=== PATIENT | female | born 1965 | race Caucasian/White ===

== ENCOUNTER 2025-01-26 12:34 | Emergency (ER) | payer OTHER, SELFPAY ==
[2025-01-26] VITALS (14 sets, daily range): BP systolic 100–160; BP diastolic 63–110; PULSE 81–103; RESP 12–22; TEMP 36.7–36.9; O2SAT 94–99; BMI 19.0
--- NOTE | 2025-01-26 13:18 | ED.SKABFB ---
HPI - Skin/Abscess/Foreign Bdy General Chief complaint: Skin/Abscess/Foreign Body Stated complaint: abscess, poss fungal infection Time Seen by Provider: 01/26/25 12:45 Source: patient Mode of arrival: ambulatory Limitations: other (Patient was paranoid and difficult to get a history from) History of Present Illness ED Provider: Dr. Mahin Bai HPI narrative: 59-year-old female with a history of schizoaffective disorder admitted to [facility] on 01/23/2025 for decompensation of her schizoaffective disorder. In reviewing the notes sent him with the patient, the patient has been experiencing with aggressive behavior, audible hallucinations with command hallucinations directing her to harm herself and delusions that evil spirits are accompanying her on errands. The patient's was noted to have a medical concern including infected wound on her scalp and a wound on her left gluteal area but was not examined on initial presentation to [facility]. According to EMS, the patient was having increased pain from the abscess on the top of her head in her left buttocks area therefore she was sent to the emergency department for evaluation. There was no reported fever or chills by the [facility] staff. Patient is on a conditional voluntary admission at [facility] and does not have a guardian. Related Data Previous Rx's ?Medication ?Instructions ?Recorded cephalexin 500 mg capsule 500 mg PO QID 7 days #28 caps 01/26/25 doxycycline hyclate 100 mg tablet 100 mg PO Q12H 7 days #14 tabs 01/26/25 Allergies Allergy/AdvReac Type Severity Reaction Status Date / Time haloperidol [From Haldol] Allergy Severe Anaphylaxis Verified 01/26/25 12:53 Review of Systems Review of Systems: Yes all other systems are reviewed and are negative [facility] Social History Social History Smoked in Last 30 Days: No Use of substances other than those prescribed or required for medical reasons: No Advance Directives: No Advance Directives Information Provided: Yes Do you have a plan to hurt others: No Plan Physical Exam Vital Signs: Vital Signs: Last Vital Signs Temp 98.0 F 01/26/25 21:04 Pulse 87 01/26/25 21:04 Resp 14 01/26/25 21:04 BP 104/65 01/26/25 21:04 Pulse Ox 94 01/26/25 21:04 O2 Del Method Room Air 01/26/25 21:04 O2 Flow Rate 3 01/26/25 15:33 Oxygen Flow Rate 3 01/26/25 15:16 BMI result Body Mass Index 19.0 Vital signs were normal Exam: General: Awake, alert in no distress, patient was oriented to person, place she knows that she came from [facility], she does have some paranoid thoughts Head: Normocephalic, patient has a 10 mm lesion to her mid parietal scalp which does appear to be draining purulent material, there is surrounding erythema, she does have tenderness to palpation of this lesion. EENT: PERRL, Lids normal, sclera normal, conjunctiva normal, nose normal , ears normal, throat without erythema or exudates Neck: Supple, no adenopathy Lung: breath sounds symmetric, no wheezing, rales or rhonchi Chest: symmetric movement, nontender Heart: regular rate and rhythm, normal S1, S2 no murmurs or rubs Abdomen: soft, non-tender, nondistended, normal bowel sounds Back: no vertebral tenderness, no CVAT Buttocks: Patient has a 10 x 5 area of erythema to her left buttocks with central flocculence and peripheral induration. Extremities: no deformities, moves all extremities symmetrically Neuro: Awake, alert, oriented, normal speech, cranial nerves intact, moves all extremities symmetrically Psych: Patient does have paranoid ideation, she was pleasant and cooperative Medications Administered Discontinued Medications Generic Name Dose Route Start Last Admin Trade Name Freq PRN Reason Stop Dose Admin Cephalexin HCl 500 mg 01/26/25 18:09 01/26/25 18:55 Cephalexin 500 Mg Capsule PO 01/26/25 18:10 500 mg ONCE ONE Administration Doxycycline Monohydrate 100 mg 01/26/25 18:09 01/26/25 18:55 Doxycycline Monohydrate 100 Mg Capsule PO 01/26/25 18:10 100 mg ONCE ONE Administration Ketamine HCl 200 mg 01/26/25 15:15 01/26/25 15:15 Ketamine Hcl 500 Mg/5 Ml Vial IVPUSH 01/26/25 15:16 200 mg ONCE ONE Administration Lidocaine HCl 5 ml 01/26/25 13:18 01/26/25 15:54 Lidocaine Hcl 1 % Mpf 5 Ml Vial INFILTRATI 01/26/25 13:19 Not Given ONCE STA Lidocaine HCl 5 ml 01/26/25 13:18 01/26/25 15:54 Lidocaine Hcl 1 % Mpf 5 Ml Vial INFILTRATI 01/26/25 13:19 Not Given ONCE ONE Lidocaine HCl 5 ml 01/26/25 13:18 01/26/25 13:28 Lidocaine Hcl 1 % Mpf 5 Ml Vial INFILTRATI 01/26/25 13:19 5 ml ONCE ONE Administration Lidocaine HCl 5 ml 01/26/25 13:18 01/26/25 13:28 Lidocaine Hcl 1 % Mpf 5 Ml Vial INFILTRATI 01/26/25 13:19 5 ml ONCE ONE Administration Lorazepam 1 mg 01/26/25 13:38 01/26/25 13:48 Lorazepam 2 Mg/Ml Vial IVPUSH 01/26/25 13:39 1 mg STAT STA Administration Medical Decision Making Medical Decision Making MDM Narrative: 59-year-old female with a history of schizoaffective disorder admitted to [facility] on 01/23/2025 for decompensation of her schizoaffective disorder and transferred to the emergency department for evaluation of an abscess on the top of her head and abscess to her left buttocks that has been there since admission to [facility] but apparently pain was getting worse. Patient was on a conditional voluntary admission at [facility] and does not have a guardian. Vital signs were normal. Exam did reveal an abscess to the top of her head which is draining purulent material in an area of flocculence and induration to her left buttocks which also has surrounding erythema. Differential diagnosis: ?Includes but is not limited to abscess, cellulitis Course: 14:01 Given the significant tenderness that the patient over these abscesses and her schizoaffective disorder with paranoid ideation I do not think that I can drain these abscesses with local anesthetic and that the patient requires procedural sedation with ketamine. Despite the patient's schizoaffective disorder and paranoid ideation,she does not have a guardian and she was able to sign a conditional voluntary consent form for treatment at [facility]. Therefore, I believe that the patient is able to comprehend the risks and benefits of procedural sedation with ketamine and is able to sign consent for the procedure. The patient tolerated the procedure well sedation a and incision and drainage procedures well. Both the abscesses were successfully incised, drained and packed with gauze packing. Patient was started on Keflex 500 mg 4 times a day for 7 days and doxycycline 100 mg 2 times a day for 7 days. She was given her 1st dose of these medications orally here in the emergency department.Bulky dressings were applied over the abscesses and the patient was discharged back to [facility]. Admission/Observation Consideration of admission/observation: Escalation of care including admission/observation considered ( no) External Record Review External record reviewed: Outpatient record ( provided by Octavia Moore of [facility]) Chronic Conditions Patient?s care impacted by: Other ( schizoaffective disorder) Procedures Procedure Narrative Procedure Narrative: Incision and drainage abscesses with procedural sedation: The patient gave md informed written consent for procedural sedation and incision and drainage procedures. The patient was placed on a cardiac, O2 saturation , respiratory rate monitor and end-tidal CO2 monitoring. A respiratory therapist was present to monitor the patient's respiratory status. A dedicated nurse was present to monitor the patient's vital signs and the patient. The patient was given given ketamine IV during the course of the procedure. She received a total of 200 mg IV. Patient had sufficient anesthesia and analgesia with this medication throughout the entire procedure.The patient tolerated the procedure well and there were no complications from the procedural sedation. Patient was observed by the nurse until she was back to her baseline mental status. Left Buttocks Abscess I&D Procedure The abscess on the patient's left buttocks was prepped with Betadine and then anesthetized with 1% lidocaine x5 cc. Using a #11 scalpel, an incision was made over the flocculent area and approximately 20 cc of purulent material was expressed from the abscess cavity. Adhesions within the abscess cavity were broken down using hemostats. Gauze packing was placed in the abscess cavity and a bulky dressing was applied by nursing staff. Scalp Abscess I&D Procedure The area around the abscess of the patient's scalp was trimmed away with scissors to further expose the abscess. The abscess was then prepped with Betadine and anesthetized with 1% lidocaine. Using a #11 scalpel, an incision was made over the flocculent area and approximately 10 cc of purulent material was expressed from the abscess cavity. Adhesions within the abscess cavity were broken down using hemostats. Gauze packing was placed in the abscess cavity and a ABS pad dressing was applied by nursing staff and held in place using OB underwear. Discharge Plan Discharge Clinical Impression: Abscess of scalp, Abscess of buttock, left, Encounter for incision and drainage procedure Patient Disposition: Xfer Psychiatric Hosp Transfer Details: [facility] Instructions: Abscess Incision and Drainage (DC) Additional Instructions: You were given procedural sedation with ketamine 200 mg IV. We are able to successfully incise and drain the abscess on your head and on your buttocks. We did drain a significant amount of pus. We did place a gauze packing in your head and in your buttocks abscess. This packing needs to stay in for 4 days and then can be removed. If they are not able to remove it at [facility] they can send you back to the emergency department and we can remove the packing. If the packing falls out before 4 days, it does not need to be reinserted. Take doxycycline 100 mg pills, 1 pill every 12 hours for 7 days. Take Keflex 500 mg pills, 1 pill 4 times a day for 7 days. Take ibuprofen 200 mg pills, 2 pills every 6 hours as needed for pain or fever. Take Tylenol (acetaminophen) 500 mg pills, 2 pills every 6 hours as needed for pain or fever. Follow-up with your doctor in 2 days. Please return to the emergency department if your symptoms get worse or if you develop any symptoms that are concerning to you. Prescriptions: New cephalexin 500 mg capsule 500 mg PO QID 7 Days Qty: 28 0RF doxycycline hyclate 100 mg tablet 100 mg PO Q12H 7 Days Qty: 14 0RF Interventions: Acute Care Transfer Worksheet (ED) Last Done: 01/26/25 21:04 Discharge Date/Time: 01/26/25 21:06 Print Language: Amharic
[2025-01-26] MEDS: Lidocaine HCl 1 % MPF 5 ML VIAL INFILTRATI ×2 (13:28)
[2025-01-26] MEDS: LORazepam 2 MG/ML VIAL 1 MG IVPUSH (13:48)
[2025-01-26] MEDS: Ketamine HCl 500 MG/5 ML VIAL 200 MG IVPUSH (15:15)
[2025-01-26] MEDS: cephALEXin 500 MG CAPSULE PO (18:55)
[2025-01-26] MEDS: Doxycycline Monohydrate 100 MG CAPSULE PO (18:55)
--- NOTE | 2025-01-26 18:57 | PC.NURSE ---
pt medicated per mar, tolerated whole well with water.
--- NOTE | 2025-01-26 21:03 | MHC.EDTECH ---
pt ambulated with a steady gait in hospital hallway. RN aware
--- NOTE | 2025-01-26 21:05 | PC.NURSE ---
peripheral iv removed, verbal report given to ems, pt aa&ox4, ambulatory indepenedently w/ steady gait/balance, pt to return to [facility] via ambulance service
== END 2025-01-26 21:06 ==
PROVIDERS: Emergency Provider Emergency Medicine Emergency Medical Services
DX: L02.811 Cutaneous abscess of head [any part, except face] (principal); L02.31 Cutaneous abscess of buttock; R51.9 Headache, unspecified; F25.9 Schizoaffective disorder, unspecified; R45.6 Violent behavior
CPT/HCPCS: 10061; 87070; 87077; 87186; 87205; 96374; 96375; 99285; J2003; J2060

== ENCOUNTER 2025-01-31 08:13 | Emergency (ER) | payer OTHER, SELFPAY ==
[2025-01-31 08:16] VITALS: BP 108/80; PULSE 78; O2SAT 97
[2025-01-31 08:26] VITALS: BP 98/53; PULSE 74; RESP 15; TEMP 36.3; O2SAT 99
--- NOTE | 2025-01-31 09:01 | ED_ITS ---
HPI - General Adult General Chief complaint: Skin/Abscess/Foreign Body Stated complaint: WOUND PACKING F/U FROM [facility] PER EMS Time Seen by Provider: 01/31/25 09:00 Source: patient and EMS Mode of arrival: EMS Limitations: no limitations History of Present Illness ED Provider: Kiesha Coulter PA-C HPI narrative: Patient is a 59 year old assigned female at with a history of schizo affective disorder (currently hospitalized at [facility]), presenting to the emergency department today for wound checks. Patient states that she was here on 01/25/2025 and had a scalp and left buttock abscess incised and drained with packing remaining. Patient states that she was told to come back to have packing removed. Patient denies any dizziness, lightheadedness, abdominal pain, nausea, vomiting, fever, chills, blurry vision, double vision, loss of vision, chest pain, difficulty breathing, shortness of breath, back pain, night sweats, pain with urination, increased urinary frequency, increased urinary urgency, blood in her urine or stool, syncope or a near syncopal episode, recent trauma or falls, bowel incontinence, bladder incontinence, or any other complaints at this time. Relieving factors: none Exacerbating factors: none Associated symptoms: denies other symptoms Related Data Previous Rx's ?Medication ?Instructions ?Recorded cephalexin 500 mg capsule 500 mg PO QID 7 days #28 caps 01/26/25 doxycycline hyclate 100 mg tablet 100 mg PO Q12H 7 days #14 tabs 01/26/25 Allergies Allergy/AdvReac Type Severity Reaction Status Date / Time haloperidol [From Haldol] Allergy Severe Anaphylaxis Verified 01/31/25 09:10 Penicillins Allergy Hives Verified 01/31/25 09:10 Review of Systems Constitutional: Constitutional: Reports no additional constitutional complaints, Denies chills, Denies fever(s) and Denies night sweats Eyes: Eyes: Reports no additional eye complaints, Denies blurry vision, Denies change in vision, Denies diplopia, Denies eye discharge, Denies loss of vision and Denies eye pain ENT: Denies dizziness Cardiovascular: Cardiovascular: Reports no additional cardiovascular complaints, Denies chest pain, Denies lightheadedness, Denies Loss of Consciousness and Denies dyspnea Respiratory: Respiratory: Reports no additional respiratory complaints and Denies dyspnea Gastrointestinal: Gastrointestinal: Reports no additional gastrointestinal complaints, Denies abdominal pain, Denies melena, Denies hematochezia, Denies change in bowel habits and Denies change in stool character Genitourinary: Genitourinary: Denies hematuria, Denies urinary frequency, Denies dysuria, Denies urinary incontinence, Denies urinary hesitancy and Denies urinary urgency Musculoskeletal: Musculoskeletal: Reports no additional musculoskeletal complaints, Denies numbness and Denies tingling Integumentary/Breasts: Comments: incised scalp lesion and incised left buttock abscess Neurologic: Denies dizziness, Denies loss of vision, Denies numbness and Denies tingling Psychiatric: Psychiatric: Reports no additional psychiatric complaints Endocrine: Endocrine: Reports no additional endocrine complaints Hematologic/Lymphatic: Hematologic/Lymphatic: Reports no additional hematologic/lymphatic complaints Allergic/Immunologic: Allergic/Immunologic: Reports no additional allergic/immunologic complaints PMFSH Past Medical History Attestation statement: The following information was validated with the patient. Source: old records reviewed and nursing notes reviewed Physical Exam ED Vital Signs: Vital Signs - 24 hr 01/31/25 08:26 Temperature 97.3 F Pulse Rate 74 Respiratory Rate 15 Blood Pressure 98/53 L Pulse Oximetry 99 Oxygen Delivery Method Room Air BMI result Body Mass Index 19.7 Const General: cooperative, no acute distress, alert and awake Nutritional Appearance: well nourished Orientation/consciousness: patient oriented x3 Limitations: no limitations HENMT Other: mid parietal scalp wound - well healing Head: Yes atraumatic Ears: hearing grossly normal bilaterally and external ears normal General nose exam: Normal external nose present, no nasal discharge noted and no epistaxis Face and sinus: Yes normal facial exam, No abrasion and No laceration Mouth: Normal oral and palatal mucosa present, no drooling and no muffled voice Eyes General: appearance normal, both eyes and all related structures Periorbital: periorbital findings normal Eyelids: Yes eyelids normal Conjunctivae: conjunctivae normal Pupils: Equal, round and reactive pupils present EOM: EOMs intact bilaterally Neck Neck: Yes normal visual inspection, Yes full ROM and Yes no lymphadenopathy Chest Chest palpation & inspection: normal inspection of the chest Resp Effort & Inspection: normal respiratory effort and able to speak in complete sentences GI Other: left buttock wound packing - no drainage, small amount of blood. Neuro General: patient oriented x3, moves all extremities and CN's II-XI intact bilaterally Cranial nerves: Yes Equal, round and reactive pupils present Cognition (Neuro): normal cognition Extrem General: Yes normal to inspection, Yes full ROM and Yes capillary refill normal Psych Appearance: grossly normal Mental Status: mental status grossly normal Affect: normal affect Attitude: cooperative Thought process: Normal thought process present Thought content: Normal thought content present Insight: Good insight present (Psych) Procedures Procedure Narrative Procedure Narrative: Left buttock wound packing removed without incident. Wound covered with non- stick dressing + gauze and taped. Medical Decision Making Medical Decision Making MDM Narrative: Patient is a 59 year old assigned female at with a history of schizoaffective disorder (currently hospitalized at [facility]), presenting to the emergency department today for wound checks. Patient's physical exam was as noted in the physical exam portion of this note. I explained my physical exam findings to the patient. I answered all questions asked by the patient. Patient's packing removed, per procedure note, without incident. I stressed the importance of the patient taking her medication as directed (either prescribed or as the over the counter packaging recommends). I stressed the importance of the patient following up with her primary care provider. I stressed the importance of the patient returning to the emergency department immediately if her symptoms were to worsen or if she were to develop any dizziness, shortness of breath, difficulty breathing, chest pain, blurry vision, loss of vision, nausea, vomiting, abdominal pain, fever, chills, back pain, or any other complaints. Patient verbalized agreement and understanding with this treatment plan and discharge. Differential Diagnosis Differential Diagnoses: The differential diagnosis associated with the presentat ion includes Wound check Packing removal Admission/Observation Consideration of admission/observation: Escalation of care including admission/observation considered Patient would have been admitted to the hospital had her clinical presentation warranted hospital admission. Independent Historian Clinical information obtained from an independent historian. History obtained from or confirmed by: EMS (EMS provided additional history and confirmed the history provided by the patient.) Discharge Plan Discharge Clinical Impression: Wound check, abscess Patient Disposition: Xfer Psychiatric Hosp Transfer Details: Back to [facility] Additional Instructions: Finish your antibiotic as prescribed. Remove your wound dressing in 24 hours. Keep the areas covered while they heal. Follow up with your primary care provider. Return to the emergency department immediately if your symptoms worsen or if you develop any numbness, tingling, dizziness, shortness of breath, difficulty breathing, chest pain, blurry vision, loss of vision, nausea, vomiting, abdominal pain, fever, chills, back pain, or any other complaints. Please see the information below about our Patient Portal. If you are not yet enrolled in the [facility] Patient Portal, you will receive an enrollment email invitation following your visit to any [facility] setting. You may also self-enroll in the Patient Portal by visiting our website: [email or web address] The following information is required to access the Patient Portal: - Your [facility] Medical Record Number - Your personal home email address (must match what is in your electronic medical record, Registration staff can assist with this) - Name - Date of Capabilities of the Patient Portal: - Message some providers - View upcoming appointments - Access your health summary, medical history, and visit history - View current conditions and allergies - View procedure and lab results - View your medications, including guidelines, side effects, and precautions - Complete pre-appointment questionnaires requested by your provider - Ready summary reports of your office visits and procedures To access the Patient Portal Mobile [employer], follow these directions: - Search The Sea App in the Yvan Store or XMP[employer] Store - Download the Yvan - Search for [facility] - Enter your login/password Prescriptions: No Action cephalexin 500 mg capsule 500 mg PO QID 7 Days Qty: 28 0RF doxycycline hyclate 100 mg tablet 100 mg PO Q12H 7 Days Qty: 14 0RF Referrals: [facility] Family Medicine [Provider Group] (Call to establish and follow up with a primary care provider. If you already have a primary care provider, please follow up with them.) [facility] Primary CareSabi [Provider Group] (Call to establish and follow up with a primary care provider. If you already have a primary care provider, jm vu follow up with them.) [facility] Primary Brandy [facility] [Provider Group] (Call to establish and follow up with a primary care provider. If you already have a primary care provider, please follow up with them.) [facility] Primary CareSarwat [Provider Group] (Call to establish and follow up with a primary care provider. If you already have a primary care provider, please follow up with them.) Print Language: Bengali
[2025-01-31 09:09] VITALS: BMI 19.7
--- NOTE | 2025-01-31 09:44 | PC.NURSE ---
Report given to Bisi BOYCE at [facility] ([phone]).
[2025-01-31 11:54] VITALS: BP 98/53; PULSE 74; RESP 15; TEMP 36.3; O2SAT 99
--- NOTE | 2025-01-31 11:56 | PC.NURSE ---
[facility] picked up the patient, returning to [facility]. [address]
== END 2025-01-31 11:57 ==
PROVIDERS: Emergency Provider Emergency Medicine
DX: L02.31 Cutaneous abscess of buttock (principal); Z48.00 Encounter for change or removal of nonsurgical wound dressing
CPT/HCPCS: 99285